=== PATIENT | male | born 1985 | race American Indian/Alaskan Native ===

== ENCOUNTER 2016-06-22 15:44 | Emergency (ER) | payer MEDICAID ==
[2016-06-22 15:58] VITALS: BP 137/69
--- NOTE | 2016-06-22 16:42 | EDM.PDOC ---
ED HPI ENT - General Chief Complaint: ENT Problem Stated Complaint: RIGHT SIDE UPPER TOOTH EXTRACTION PAIN Time Seen by Provider: 06/22/16 16:29 Source: Reports: Patient, RN notes reviewed History Limitations: Reports: No limitations - History of Present Illness INITIAL COMMENTS - FREE TEXT/NARRATIVE: 30-year-old gentleman presents emergency Department a complaint of dental pain he recently underwent dental extraction tooth #19 yesterday he is experiencing pain from that, he does have hydrocodone at home unfortunately this does not help his pain he has used Ultram in the past and he would like to try that medication instead he also needs something for sleep denies any fevers - Related Data Allergies/ADRs: Allergies Allergy/AdvReac Type Severity Reaction Status Date / Time No Known Allergies Allergy Verified 06/22/16 16:01 Home Meds: Home Meds Acetaminophen/HYDROcodone [[place] 325-5 MG] 1 tab PO Q4HR 06/22/16 [History] Clindamycin HCl 300 mg PO QID 06/22/16 [History] Past Medical History - Infectious Disease History Infectious Disease History: Reports: Chicken pox - Past Surgical History HEENT Surgical History: Reports: Oral surgery GI Surgical History: Reports: Cholecystectomy Social & Family History - Tobacco Use Smoking Status *Q: Never Smoker - Caffeine Use Caffeine Use: Reports: Coffee - Recreational Drug Use Recreational Drug Use: No ED ROS ENT - Review of Systems Review Of Systems: See Below Constitutional: Denies: fever, chills HEENT: Reports: Dental pain Respiratory: Reports: no symptoms Cardiovascular: Reports: No symptoms GI/Abdominal: Reports: No symptoms : Reports: no symptoms ED EXAM, ENT - Physical Exam Exam: See Below Exam Limited By: No limitations General Appearance: alert, WD/WN, no apparent distress Mouth/Throat: Dental pain, Dental tenderness, Oral ulcers Head: atraumatic, normocephalic Neck: normal inspection, supple, non-tender, full range of motion Respiratory/Chest: no respiratory distress, lungs clear, normal breath sounds, no accessory muscle use Cardiovascular: regular rate, rhythm, no murmur Course - Vital Signs Last Recorded V/S: Last Vital Signs Temp 98.6 F 06/22/16 16:05 Pulse 76 06/22/16 16:05 Resp 16 06/22/16 16:05 BP 137/69 06/22/16 16:05 Pulse Ox 96 06/22/16 16:05 Departure - Departure Time of Disposition: 16:42 Disposition: Home, Self-Care 01 Condition: good Clinical Impression: Pain, dental Forms: ED Department Discharge Additional Instructions: Use Ultram as needed for pain control, Please followup with your primary care provider in 3-5 days if not better, please call return to the emergency department with worsening of symptoms. - Assessment/Plan Plan: Assessment Acuity = acute Site and laterality = dental extraction tooth #19 Etiology = secondary to caries Manifestations = pain Location of injury = home Lab values = none Plan Pain medication of Ultram and for total #30 tablets, 20 tablets of Ambien written for followup with primary care next 3-5 days if no improvement Patient was in agreement with the plan all questions were answered, they were instructed to return to the emergency department or call for worsening symptoms. This note was dictated using [employer] voice recognition software please call with any questions.
== END 2016-06-22 16:52 | disposition home or self-care (01) ==
LOC: JP.ED 15:44
DX: K08.89 Other specified disorders of teeth and supporting structures (principal); Z79.899 Other long term (current) drug therapy
CPT/HCPCS: 99283

== ENCOUNTER 2016-11-17 10:30 | Emergency (ER) | payer MEDICAID ==
[2016-11-17 11:09] VITALS: BP 118/82
--- NOTE | 2016-11-17 11:15 | EDM.PDOC ---
[id number] Complaint: RIGHT KNEE PAINFUL Time Seen by Provider: 11/17/16 11:04 Source of Information: Reports: Patient History Limitations: Reports: No Limitations - History of Present Illness INITIAL COMMENTS - FREE TEXT/NARRATIVE: 30 yo male present with right knee pain. knee pain has been intermittently present for 5 years. Denies injury/trauma to knee. Pain started when he was running. Pain is worse if he is active. Denies locking or clicking of knee. He is newly returned to the area and has not re-established PCP. He started "working out" again this week and is experiencing lateral right knee pain during work outs. He also describes "knee giving out" He does not fall when this happens. - Related Data Allergies Allergy/AdvReac Type Severity Reaction Status Date / Time No Known Allergies Allergy Verified 06/22/16 16:01 Home Meds: Home Meds Citalopram Hydrobromide [Celexa] 1 tab PO DAILY 11/17/16 [History] Past Medical History - Infectious Disease History Infectious Disease History: Reports: Chicken Pox - Past Surgical History HEENT Surgical History: Reports: Oral Surgery GI Surgical History: Reports: Cholecystectomy Social & Family History - Tobacco Use Smoking Status *Q: Never Smoker - Caffeine Use Caffeine Use: Reports: Coffee - Recreational Drug Use Recreational Drug Use: No Review of Systems - Review of Systems Review Of Systems: See Below Constitutional: Denies: Chills, Fever Respiratory: Denies: Shortness of Breath, Wheezing Cardiovascular: Denies: Chest Pain ED EXAM, GENERAL - Physical Exam Exam: See Below Exam Limited By: No Limitations General Appearance: Alert, WD/WN, No Apparent Distress Respiratory/Chest: No Respiratory Distress Extremities: Other (right knee lateral joint line tenderness, no edema, ecchymosis or erythema, ROM normal. negative drawer) Course - Vital Signs Last Recorded V/S: Last Vital Signs Temp 37.2 C 11/17/16 11:08 Pulse 90 11/17/16 11:08 Resp 16 11/17/16 11:08 BP 118/82 11/17/16 11:08 Pulse Ox 98 11/17/16 11:08 Departure - Departure Time of Disposition: 11:15 Disposition: Home, Self-Care 01 Condition: Good Clinical Impression: Knee pain, acute Qualifiers: Laterality: right Qualified Code(s): M25.561 - Pain in right knee - Discharge Information Instructions: Knee Pain Referrals: PCP,None [Primary Care Provider] - Forms: ED Department Discharge Additional Instructions: make appt with primary care for evaluation and request physical therapy naproxen twice daily for pain and inflammation ice
== END 2016-11-17 11:28 | disposition home or self-care (01) ==
LOC: JP.ED 10:30
DX: M25.561 Pain in right knee (principal); Z79.899 Other long term (current) drug therapy; X58.XXXA Exposure to other specified factors, initial encounter
CPT/HCPCS: 99283

== ENCOUNTER 2017-10-11 07:08 | Emergency (ER) | payer SELFPAY ==
[2017-10-11 07:35] VITALS: BP 127/86
--- NOTE | 2017-10-11 08:03 | EDM.PDOC ---
ED HPI GENERAL MEDICAL PROBLEM - General Chief Complaint: ENT Problem Stated Complaint: TOOTH PAIN Time Seen by Provider: 10/11/17 07:45 Source of Information: Reports: Patient History Limitations: Reports: No Limitations - History of Present Illness INITIAL COMMENTS - FREE TEXT/NARRATIVE: 31-year-old male with advanced dental decay especially in the right mandible presents with right mandibular pain for the past 4-6 days. There is some swelling. No fever or chills. Onset: Gradual Severity: Moderate Associated Symptoms: Denies: Fever/Chills, Headaches, Nausea/Vomiting tooth Pain Score (Numeric/FACES): 9 - Related Data Allergies Allergy/AdvReac Type Severity Reaction Status Date / Time No Known Allergies Allergy Verified 10/11/17 07:34 Home Meds: Home Meds Citalopram Hydrobromide [Celexa] 40 mg PO DAILY 11/17/16 [History] buPROPion HCl [Wellbutrin Xl] 300 mg PO DAILY 10/11/17 [History] Past Medical History Psychiatric History: Reports: Anxiety, Depression - Infectious Disease History Infectious Disease History: Reports: Chicken Pox - Past Surgical History HEENT Surgical History: Reports: Oral Surgery GI Surgical History: Reports: Cholecystectomy Social & Family History - Tobacco Use Smoking Status *Q: Never Smoker - Caffeine Use Caffeine Use: Reports: Coffee - Recreational Drug Use Recreational Drug Use: No ED ROS ENT - Review of Systems Review Of Systems: See Below Constitutional: Denies: Fever, Chills Respiratory: Denies: Shortness of Breath Cardiovascular: Denies: Chest Pain GI/Abdominal: Denies: Nausea, Vomiting Skin: Denies: Erythema ED EXAM, ENT - Physical Exam Exam: See Below Exam Limited By: No Limitations General Appearance: Alert, No Apparent Distress (Looks uncomfortable but not distressed) Mouth/Throat: No: Normal Teeth (Patient has advanced dental decay of the right first and second molar, there is gingival erythema and swelling and tenderness to percussion of the wisdom tooth) Course - Vital Signs Last Recorded V/S: Last Vital Signs Temp 98.4 F 10/11/17 07:35 Pulse 98 10/11/17 07:35 Resp 15 10/11/17 07:35 BP 127/86 10/11/17 07:35 Pulse Ox 94 L 10/11/17 07:35 - Re-Assessments/Exams Free Text/Narrative Re-Assessment/Exam: 10/11/17 08:01 Patient was started on penicillin VK 500 mg 4 times a day, encouraged to take a regular dose of anti-inflammatory and given 6 hydrocodone for pain control for the first 24 hours. 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 Departure - Departure Time of Disposition: 08:16 Disposition: Home, Self-Care 01 Condition: Good Clinical Impression: Dental abscess - Discharge Information Instructions: Dental Abscess, [id number] Referrals: Reba Delaney NP [Primary Care Provider] - Forms: ED Department Discharge Care Plan Goals: Take a regular dose of ibuprofen or naproxen. Take penicillin 4 times a day until gone. Use stronger pain medication sparingly if needed and as directed, and follow up with the dentist as soon as possible for a recheck.
== END 2017-10-11 08:16 | disposition home or self-care (01) ==
LOC: JP.ED 07:08
DX: K04.7 Periapical abscess without sinus (principal); Z79.899 Other long term (current) drug therapy
CPT/HCPCS: 99283